=== PATIENT | female | born 1930 | race Caucasian/White ===

== ENCOUNTER 2017-01-10 13:51 | Inpatient (IN) | payer OTHER, BC ==
[~2017-01-10] VITALS: Ht 162.6 cm; Wt 65.8 kg
--- NOTE | ~2017-01-10 | EKG ---
[address] [place] [address] ELECTROCARDIOGRAM REPORT Name: NOLA BURDICK Room #: 405-P ADM IN M.R.#: [id number] Admission: 01/10/17 Attend Phys: Caleb De Jesus Discharge: Date of : [birth year] Report #: [id number] THIS REPORT FOR: //name// [facility] ED Test Date: 2017-01-10 Test Time: 18:08:25 Pat Name: NOLA BURDICK Department: Room: 405 Gender: F Roustabout Hand: Shahrzad IRIZARRY : 1930 Requested By: Stu Hernandez Order Number: [id number] MD: Ivan Rick Measurements Intervals [place] Rate: 106 P: -4 AL: 157 QRS: 36 QRSD: 75 T: 35 QT: 345 QTc: 459 Interpretive Statements Sinus tachycardia Atrial premature complexes Compared to ECG 03/15/2016 14:10:04 Sinus rhythm no longer present Electronically Signed On 01-11-2017 8:07:11 CDT by Ivan Rick [email or web address] <ELECTRONICALLY SIGNED> By: Ivan Rick MD 10/806 07 07 Ivan Rick MD /DIANE
[~2017-01-10 13:51] MED LIST: ACETAMINOPHEN-1 EAC1 PO; ASPIRIN81 M2 PO; ATIVAN0.5 MG PO; CELEXA40 MG PO; DIFLUCAN200 MG PO; DIOVAN160 MG PO; DOXEPIN 10 MG C10 M1 PO; DOXEPIN 25 MG C25 M1 PO; GRAPE SEED25 MG PO; GREEN TEA1 EACH PO; HYDROCHLOROTH12.5 M1 PO; HYDROCHLOROTH12.5 MG PO; LIPITOR10 MG PO; LIPITOR40 MG PO; OMEGA 3-6-9 CO1 EACH; OMEGA-3 + VITA1 EAC1 PO; OMEPRAZOLE 20 M20 M1 PO; POTASSIUM20 PO; SERTRALINE HCL50 MG PO; STOOL SOFTENER50 MG PO; TRAMADOL 50 MG50 MG PO; TYLENOL EX-STR500 M2 PO; [UNRECOGNIZED DRUG - OTHER]
[2017-01-10 14:16] VITALS: BP 102/48
[2017-01-10] MEDS ORDERED: CALCIUM 500 +1 EAC5 PO (16:02)
[2017-01-10] MEDS ORDERED: UNICOMPLEX M TA1 TA1 PO (16:03)
[2017-01-10] MEDS ORDERED: VITAMIN B-1100 M1 PO (16:03)
[2017-01-10] MEDS ORDERED: MELATONIN5 M1 PO (16:05)
[2017-01-10] MEDS ORDERED: CELEXA20 MG PO (16:06)
[2017-01-10] MEDS ORDERED: CARDIOSTEROL C1 EACH PO (16:07)
[2017-01-10] MEDS ORDERED: CITRACAL PLUS1 EAC1 PO (16:07)
[2017-01-10] MEDS ORDERED: VOLTAREN GEL 1100 G2 TOP (16:08)
[2017-01-10] MEDS ORDERED: MAGNESIUM250 M1 PO (16:08)
[2017-01-10 18:45] VITALS: BP 102/48
[2017-01-10 19:26] LABS: ABSOLUTE NEUTROPHILS 4.1 thou/uL (1.4-8.2); BASOPHILS 0.8 % (0.0-2.0); EOSINOPHILS 3.1 % (0.0-3.0); HEMATOCRIT 37.8 % (37.0-47.0); HEMOGLOBIN 12.9 gm/dL (12.0-15.0); LYMPHOCYTES 23.1 % (24.0-44.0); MCH 32.7 pg (26.0-34.0); MCHC 34.1 g/dL (28.0-37.0); MONOCYTES 11.4 % (1.0-8.0); PLATELET COUNT 160 thou/uL (150-400); POLYS 61.6 % (36.0-66.0); RBC 3.94 mil/uL (4.20-5.00); RDW 12.3 % (10.5-14.5); WBC 6.6 thou/uL (4.0-11.0)
[2017-01-10 19:32] VITALS: BP 137/71
[2017-01-10 19:32] LABS: MANUAL DIFF NO
[2017-01-10 19:37] LABS: CALCIUM 10.2 mg/dL (8.5-10.1); CREATININE 1.1 mg/dL (0.6-1.0)
[2017-01-10 19:41] LABS: APTT 30.6 Seconds (24.5-32.8); PROTIME 9.9 Seconds (9.3-11.4)
[2017-01-10 20:33] VITALS: BP 146/55
[2017-01-10 20:34] VITALS: BP 146/55
[2017-01-11 05:30] VITALS: BP 150/65
[2017-01-11] MEDS ORDERED: PAIN & FEVER325 MG PO (09:38)
== END 2017-01-11 09:50 | DRG 561 ==
LOC: ER 13:51 → EROBS 18:17 → 4N 19:39
PROVIDERS: Nurse Practitioner
DX: M97.02XA Periprosthetic fracture around internal prosthetic left hip joint, initial encounter (principal); Z96.659 Presence of unspecified artificial knee joint; F41.9 Anxiety disorder, unspecified; I10 Essential (primary) hypertension; F32.9 Major depressive disorder, single episode, unspecified; E78.5 Hyperlipidemia, unspecified; Z96.642 Presence of left artificial hip joint; Z88.0 Allergy status to penicillin; Z87.891 Personal history of nicotine dependence; Z79.899 Other long term (current) drug therapy; W18.39XA Other fall on same level, initial encounter; Y93.89 Activity, other specified; Y92.89 Other specified places as the place of occurrence of the external cause; Y99.8 Other external cause status
CPT/HCPCS: 10790

== ENCOUNTER 2017-10-20 10:57 | Emergency (ER) | payer OTHER, BC ==
[~2017-10-20] VITALS: Ht 162.6 cm; Wt 65.8 kg
[~2017-10-20 10:57] MED LIST changes: +CALCIUM 500 +1 EAC5 PO; +CARDIOSTEROL C1 EACH PO; +CELEXA20 MG PO; +CITRACAL PLUS1 EAC1 PO; +MAGNESIUM250 M1 PO; +MELATONIN5 M1 PO; +PAIN & FEVER325 MG PO; +UNICOMPLEX M TA1 TA1 PO; +VITAMIN B-1100 M1 PO; +VOLTAREN GEL 1100 G2 TOP
[2017-10-20] MEDS ORDERED: ACETAMINOPHEN-1 EAC1 PO (12:09)
== END 2017-10-20 13:12 | disposition home or self-care (01) ==
LOC: ER 10:57
DX: S83.91XA Sprain of unspecified site of right knee, initial encounter (principal); I10 Essential (primary) hypertension; F41.9 Anxiety disorder, unspecified; Z96.649 Presence of unspecified artificial hip joint; Z96.659 Presence of unspecified artificial knee joint; Z87.891 Personal history of nicotine dependence; Z88.0 Allergy status to penicillin; W18.30XA Fall on same level, unspecified, initial encounter; Y93.89 Activity, other specified; Y92.89 Other specified places as the place of occurrence of the external cause; Y99.8 Other external cause status

== ENCOUNTER 2018-05-05 23:23 | Emergency (ER) | payer OTHER, BC ==
[~2018-05-05] VITALS: Ht 165.1 cm; Wt 81.7 kg
[2018-05-05] MEDS ORDERED: TUMS PO (23:39)
[2018-05-05] MEDS ORDERED: COLACE100 MG PO (23:50)
[2018-05-05] MEDS ORDERED: MILK OF MA2400 MG/10 PO (23:52)
[2018-05-05] MEDS ORDERED: B-12 DOTS500 MCG PO (23:53)
[2018-05-05] MEDS ORDERED: VITAMIN D3400 UNIT PO (23:54)
[2018-05-05] MEDS ORDERED: BUSPIRONE HCL10 MG PO (23:54)
[2018-05-05] MEDS ORDERED: LEXAPRO20 MG PO (23:55)
[2018-05-05] MEDS ORDERED: SEROQUEL 25 MG25 M1 PO (23:57)
[2018-05-06] MEDS ORDERED: BIOFREEZE118 ML (00:05)
[2018-05-06] MEDS ORDERED: ATIVAN0.5 MG (00:09)
[2018-05-06 02:12] VITALS: BP 136/68
== END 2018-05-06 02:00 | disposition home or self-care (01) ==
LOC: ER 23:23
DX: M25.552 Pain in left hip (principal); I10 Essential (primary) hypertension; F41.9 Anxiety disorder, unspecified; E78.5 Hyperlipidemia, unspecified; Z96.652 Presence of left artificial knee joint; Z96.642 Presence of left artificial hip joint; Z87.891 Personal history of nicotine dependence; Z88.0 Allergy status to penicillin; W03.XXXA Other fall on same level due to collision with another person, initial encounter; Y93.89 Activity, other specified; Y92.129 Unspecified place in nursing home as the place of occurrence of the external cause; Y99.8 Other external cause status

== ENCOUNTER 2018-06-09 05:19 | Emergency (ER) | payer OTHER, BC ==
[~2018-06-09] VITALS: Ht 165.1 cm; Wt 81.7 kg
[~2018-06-09 05:19] MED LIST changes: +ATIVAN0.5 MG; +B-12 DOTS500 MCG PO; +BIOFREEZE118 ML; +BUSPIRONE HCL10 MG PO; +COLACE100 MG PO; +LEXAPRO20 MG PO; +MILK OF MA2400 MG/10 PO; +SEROQUEL 25 MG25 M1 PO; +TUMS PO; +VITAMIN D3400 UNIT PO
[2018-06-09 05:53] LABS: ABSOLUTE NEUTROPHILS 2.2 thou/uL (1.4-8.2); BASOPHILS 0.6 % (0.0-2.0); EOSINOPHILS 2.9 % (0.0-3.0); HEMATOCRIT 40.3 % (37.0-47.0); HEMOGLOBIN 13.6 gm/dL (12.0-15.0); LYMPHOCYTES 32.4 % (24.0-44.0); MCH 32.6 pg (26.0-34.0); MCHC 33.6 g/dL (28.0-37.0); MONOCYTES 11.7 % (1.0-8.0); PLATELET COUNT 153 thou/uL (150-400); POLYS 52.4 % (36.0-66.0); RBC 4.15 mil/uL (4.20-5.00); RDW 12.9 % (10.5-14.5); WBC 4.2 thou/uL (4.0-11.0)
[2018-06-09 06:01] LABS: CALCIUM 9.8 mg/dL (8.5-10.1); CREATININE 0.8 mg/dL (0.6-1.0); POTASSIUM 3.9 mmol/L (3.5-5.1)
[2018-06-09 06:47] VITALS: BP 106/53
--- NOTE | 2018-06-09 08:03 | EKG ---
[address] [address] ELECTROCARDIOGRAM REPORT Name: NOLA BURDICK TENZIN Room #: DEP [facility]#: [id number] ������������������ Admission: 06/09/18 ������������������ Attend Phys: Discharge: 06/09/18 ������������������ Date of : [birth year] Report #: [id number] ����������������������������������������������������������������� [id number] THIS REPORT FOR: //name// [facility] ED Test Date: 2018-06-09 Test Time: 05:53:31 Pat Name: NOLA BURDICK Department: Room: Gender: F Veterinary Virus Serum Inspector: [email or web address] : 1930 Requested By: Jaime Reed Order Number: [id number] MD: Mitchel Hollis Measurements Intervals [place] Rate: 71 P: 19 MS: 165 QRS: 20 QRSD: 78 T: 34 QT: 389 QTc: 423 Interpretive Statements Sinus rhythm Normal tracing Compared to ECG 11/25/2017 23:08:19 Atrial premature complex(es) no longer present Electronically Signed On 06-09-2018 8:03:18 CDT by Mitchel Hollis [email or web address] ��������������������������������������������� <ELECTRONICALLY SIGNED> ���������������������������������������� By: Mitchel Hollis MD, [facility] ��������������������������������������������� 06/09/18 [id number] 0553 Mitchel Hollis MD, FACC /EPI
== END 2018-06-09 07:43 ==
LOC: ER 05:19
PROVIDERS: Emergency Medicine
DX: S20.211A Contusion of right front wall of thorax, initial encounter (principal); M79.671 Pain in right foot; I10 Essential (primary) hypertension; F41.9 Anxiety disorder, unspecified; E78.5 Hyperlipidemia, unspecified; Z96.659 Presence of unspecified artificial knee joint; Z87.891 Personal history of nicotine dependence; Z88.0 Allergy status to penicillin; Z96.649 Presence of unspecified artificial hip joint; W01.198A Fall on same level from slipping, tripping and stumbling with subsequent striking against other object, initial encounter; Y92.002 Bathroom of unspecified non-institutional (private) residence as the place of occurrence of the external cause; Y93.89 Activity, other specified; Y99.8 Other external cause status

== ENCOUNTER 2018-06-24 12:20 | Inpatient (IN) | payer OTHER, BC ==
[~2018-06-24] VITALS: Ht 172.7 cm; Wt 68.0 kg
[2018-06-24 12:20] VITALS: BP 165/76
[2018-06-24 12:46] LABS: BASOPHILS 0.8 % (0.0-2.0); EOSINOPHILS 0.4 % (0.0-3.0); HEMATOCRIT 41.5 % (37.0-47.0); HEMOGLOBIN 13.9 gm/dL (12.0-15.0); LYMPHOCYTES 22.3 % (24.0-44.0); MCH 32.6 pg (26.0-34.0); MCHC 33.6 g/dL (28.0-37.0); MCV 97.2 fL (80.0-100.0); PLATELET COUNT 205 thou/uL (150-400); POLYS 65.5 % (36.0-66.0); RBC 4.27 mil/uL (4.20-5.00); RDW 12.6 % (10.5-14.5); WBC 7.7 thou/uL (4.0-11.0)
[2018-06-24 12:48] LABS: URINE BILIRUBIN NEGATIVE (Negative); URINE BLOOD NEGATIVE (Negative); URINE CLARITY CLEAR; URINE COLOR YELLOW; URINE GLUCOSE-RANDOM* NEGATIVE (Negative); URINE KETONES NEGATIVE (Negative); URINE LEUKOCYTES NEGATIVE (Negative); URINE NITRITE NEGATIVE (Negative); URINE PROTEIN (DIPSTICK) 1+ (Negative); URINE SPECIFIC GRAVITY >= 1.030 (1.005-1.035); URINE UROBILINOGEN 0.2 E.U./dl (0.2-1.0)
[2018-06-24 12:55] LABS: CALCIUM 10.2 mg/dL (8.5-10.1); POTASSIUM 4.3 mmol/L (3.5-5.1)
[2018-06-24 12:56] LABS: AMP/METHAMP Negative (Negative); BARBITURATES Negative (Negative); BENZODIAZEPINES Negative (Negative); COCAINE Negative (Negative); METHADONE Negative (Negative); OPIATES Negative (Negative); PCP Negative (Negative)
[2018-06-24 12:58] LABS: BACTERIA 1-9 Few /HPF (None Seen); CASTS None Seen /LPF (None Seen); CRYSTALS None Seen /LPF (None Seen); SQUAMOUS None Seen /LPF (0-3); URINE RBC None Seen /HPF (0-2); URINE WBC 0-5 Rare /HPF (0-5)
[2018-06-24 13:00] LABS: ALBUMIN 4.3 g/dL (3.4-5.0); TOTAL BILIRUBIN 0.7 mg/dL (<0.1-1.0); TOTAL PROTEIN 7.6 g/dL (6.4-8.2)
[2018-06-24 14:01] VITALS: BP 150/70
[2018-06-24] MEDS ORDERED: LATUDA20 MG PO (14:29)
[2018-06-24 15:32] VITALS: BP 154/59
--- NOTE | 2018-06-24 17:47 | NUR ---
PATIENT ADMITTED THROUGH THE ER FROM [facility] FOR INCREASED ANXIETY AND CONFUSION AT 1600. ADMISSION HISTORY COMPLETED; LUNGS CLEAR, DIMINSHED; HYPERACTIVE BOWEL SOUNDS. PATIENT RESTLESS, WILL NOT FOLLOW COMMANDS. CHERIE PACING AROUND THE UNIT ABOUT 1700. NOW SITTING AT DR VASQUEZ, QUIET. REFUSED DINNER. REFUSED NEW ORDER FOR ZYPREXA 2.5 MG. WILL ATTEMPT TO ADMINISTER CRUSHED IN APPLESAUCE. ADMISSION HISTORY COMPLETED; LUNGS CLEAR, DIMINISHED.
--- NOTE | 2018-06-24 18:58 | NUR ---
PATIENT REFUSED ZYPREXA 2.5 MG AT 1630, NEW ORDER FROM ROB WILSON. ALSO REFUSED TO GET IN BED FOR WEIGHT. NURSE CONTACTED [facility] AT 1730 FOR CURRENT MEDICATION LIST. NEW ORDERS FOR MEDICATIONS, ENTERED BY THIS NURSE. SOME OF THE MEDS RECEIVED AT [facility] WAS NOT APPROVED BY ROB WILSON. NEED TO BE CLARIFIED WITH HOSPITALISTS. HOSPITALISTS NOTIFIED BY THIS NURSE.
[2018-06-24 20:00] VITALS: BP 180/85
--- NOTE | 2018-06-25 03:31 | NUR ---
UPON INITIAL OBSERVATION THIS SHIFT IN DAYROOM SITTING QUIETLY EATING SNACK-DURING ;1 INTERACTION REPORTS FEELING "REALLY ANXIOUS-DAFNE NEVER BEEN HERE BEFORE-I WANT TO GO HOME I CAN TAKE A TAXI" DID REPEAT THIS SEVERAL TIMES AND WAS UNABLE TO BE REFOCUSED/REDIRECTED-PM VS OBTAINED AND IS NOTED TO HAVE ELEVATED BP AT 180/85-AFTER SEVERAL CONVERSATIONS WITH NURSING DID APPEAR TO ACCEPT SHE WOULD BE STAYING FOR EVALUATION-INITALLY REFUSED TRAZADONE 50MG AND ZYPREXA SCHEDULED FOR HS BUT WHEN ADVICED THAT THIS WOULD HELP ANXIETY AND ELEVATED BP DID COMPLY-BP RECHECKED APPROX 45 MINUTES AFTER MEDS GIVEN AND IS 176/82. APPEARED TO REST QUIETLY FROM APPROX 2200 TO 0300-RESTLESS AFTER 0300 UP AND DOWN IN ROOM- A
[2018-06-25 07:45] VITALS: BP 175/85
--- NOTE | 2018-06-25 10:35 | NUR ---
ASSUMED PATIENT CARE AT 0700. PATIENT UP IN D.R. AT THAT TIME. PATIENT WOULD NOT EAT BREAKFAST, ONLY DRANK HER MILK. BEGAN TALKING ABOUT GOING HOME WITH HER FATHER, STATING THAT SHE IS LEAVING TODAY. DIFFICULT TO RE-DIRECT. FLAT AFFECT, WILL NOT ALLOW SKIN ASSESSMENT TO DATE BY THIS NURSE. WITH ENCOURAGEMENT, TOOK A.M. MEDICATIONS, CRUSHED AND IN APPLESAUCE. SEEN BY DR. NICHOLS THIS A.M.; NURSE GAVE REPORT TO DR. NICHOLS. NEED NAME AND PAPERWORK FROM ASSIGNED DPOA. WILL CONTACT [facility] FOR MORE INFORMATION. CONTINUE TO MONITOR.
--- NOTE | 2018-06-25 11:45 | EKG ---
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 Performance Qualified: derrek : 1930 Requested By: Grace Bassett Order Number: [id number] MD: Mitchel oHllis Measurements Intervals [place] Rate: 72 P: 45 AL: 142 QRS: 29 QRSD: 81 T: 31 QT: 407 QTc: 446 Interpretive Statements Sinus rhythm Atrial premature complex Abnormal R-wave progression, early transition Compared to ECG 06/09/2018 05:53:31 Atrial premature complex(es) now present Electronically Signed On 06-25-2018 11:45:25 CDT by Mitchel Hollis [email or web address] ��������������������������������������������� <ELECTRONICALLY SIGNED> ���������������������������������������� By: Mitchel Hollis MD, FACC ��������������������������������������������� 06/25/18 1145 1257 1257 Mitchel Hollis MD, [facility] /EPI
--- NOTE | 2018-06-25 12:27 | NUR ---
SW attempted to complete the psychsocial assessment with Pt, however it could not be completed. Pt is confused and when asked a question she would talk about being in school and having a masters degree in maori literature Pt to confused to give historic or current information and was only oriented to self. MARI attempted to call Conchis Brower, who has been identified as the possible DPOA. Mari left a message for Ese Leonarda at [phone] for a return call back.
--- NOTE | 2018-06-25 13:02 | NUR ---
PATIENT ADMINISTERED 2.5 MG ZYPREXA,IM, AT THIS TIME FOR INCREASED AGITATION, RIGHT HIP. ASSISTED BY TWO OTHER STAFF MEMBERS.
--- NOTE | 2018-06-25 15:32 | NUR ---
PATIENT CONTINUES TO REFUSE MEDICATIONS AND DIAGNOSTIC TESTING. CONTINUALLY C/O PAIN UNDERNEATH BILATERAL BREASTS. KEEPS REPEATING THAT HER DOCTOR DOES NOT WORK HERE, AND THAT ONLY WANTS TO SEE HER OWN DOCTOR.
--- NOTE | 2018-06-25 16:17 | NUR ---
NEW ORDER 5 MG HALDOL, IM, PER SHOT MAN FLORINA WILSON AT 1605. NURSE ADMINISTERED ABOVE ORDER AT 1612 P.M. FOR INCREASED AGITATION, YELLING, HITTING STAFF MEMBERS. ALSO ORDER FOR 4 BEDRAILS UP UNTIL PATIENT CALMS DOWN. OTHER STAFF R.N. SITTING WITH PATIENT AT BEDSIDE AT THIS TIME.
--- NOTE | 2018-06-25 18:21 | NUR ---
KUB AND EKG COMPLETED, ONE FOLLOWING THE OTHER, AT ABOUT 1700. KUB NORMAL GASSES, NO SIGNS OF CONSTIPATION. EKG, NORMAL SINUS RHYTHM. ANALISA, [facility], PRESENTED ON THE UNIT TO NOTARIZE 96 HOUR HOLD, R/T NO LEGAL GUARDIAN PRESENT TO SIGN PATIENT IN. PATIENT REFUSES DRINKS OF WATER; TOOK ONE DRINK, THEN SPIT UP MOUCUSY LOOKING SALIVA.
[2018-06-25 19:46] VITALS: BP 152/59
--- NOTE | 2018-06-26 01:26 | EKG ---
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: JORGE : 1930 Requested By: Carla Saldana Order Number: [id number] MD: Americo Lara Measurements Intervals [place] Rate: 88 P: 30 SD: 128 QRS: -4 QRSD: 76 T: 29 QT: 350 QTc: 424 Interpretive Statements Sinus rhythm Baseline wander Nonspecific ST-T wave changes Compared to ECG 06/24/2018 12:57:13 Atrial premature complex(es) no longer present Electronically Signed On 06-26-2018 1:26:40 CDT by Americo Lara [email or web address] ��������������������������������������������� <ELECTRONICALLY SIGNED> ���������������������������������������� By: Americo Lara MD ��������������������������������������������� 06/26/18 0126 1755 1755 Americo Lara MD /EPI
--- NOTE | 2018-06-26 04:12 | NUR ---
UPON INITITAL ASSESSMENT THIS PM AT APPROX 1929 WAS LYING QUIETLY IN ROOM- NOTED TO BE MILDLY DROWSY BUT CALM-SPEECH CLEAR-CONVERSATION FOCUSES ON SOMATIC COMPLAINTS AND SUBSEQUENT DX PROCEDURES FROM EARLIER IN DAY. NO COMPLAINTS OF PAIN OR DISCOMFORT AT THIS TIME-STATING"I WANT TO GET A TAXI AND GO HOME" BUT WAS EASILY REDIRECTED OFF OF THIS TOPIC-APPEARED TO REST FOR APPROX 30 MINUTES IN ROOM BEFORE NOTED TO BE UP WANDERING IN HALLWAYS-WALKED INTO PEERS ROOM AND TURNED THE LIGHT OFF AND PROCEDED TO URINATE IN HER TOILET-WALKED BACK TO ROOM,GIVEN HS MEDS AND HS SNACK-ATE 2 CONTAINERS OF YOGURT AND APPROX. 150CC OF H20 WITH HER HS MEDS-REFUSED TO TAKE OF SWEATSHIRT OR CHANGE GOWN UNDERNEATH OTHERWISE COOPERATIVE WITH HS CARES-TO BED AT APPROX 0 AND HAS APPEARED TO REST QUIETLY SINCE THAT TIME
[2018-06-26 07:45] VITALS: BP 136/64
--- NOTE | 2018-06-26 08:30 | NUR ---
PT EATING BREAKFAST WITH INTERMITTANT COUGHING. LUNGS CLEAR. PT STATED SHE DIDN'T GET ANY SLEEP LAST NIGHT. LENS INSPECTOR STATED THAT SHE HAD 9 HOURS OF SLEEP.
[2018-06-26 09:00] VITALS: BP 136/64
[2018-06-26 10:08] LABS: HEMATOCRIT 40.8 % (37.0-47.0); HEMOGLOBIN 13.9 gm/dL (12.0-15.0); MCH 33.1 pg (26.0-34.0); MCHC 34.1 % (28.0-37.0); MCV 96.9 fL (80.0-100.0); RBC 4.21 mil/uL (4.20-5.00); RDW 12.7 % (10.5-14.5); WBC 7.5 thou/uL (4.0-11.0)
--- NOTE | 2018-06-26 12:00 | NUR ---
SPEECH THEAPY TO EVAL SWALLOWING WITH LUNCH.
--- NOTE | 2018-06-26 14:05 | NUR ---
EATING PEANUT BUTTER AND CRACKERS WITHOUT COUGHING. DIDN'T PARTICIPATE IN AM OR PM GROUP.
--- NOTE | 2018-06-26 17:06 | NUR ---
PT NOT COUGHING WITH THICKEN LIQUIDS FOR DINNER. TOLERATING MED WHOLE WITH THICKEN LIQUID.
[2018-06-26 19:36] VITALS: BP 120/78
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
--- NOTE | 2018-06-27 01:03 | NUR ---
Pt awakened at midnight wanting to use the restroom. Pt urinated 200cc and shortly after stated she needed to urinate again, and she did 500cc. She had to be redirected when walking in the halls not to go into other patients rooms to use their bathrooms. Pt also complained of back and generalized pain and prn given. When pt was taking pill out of medicine cup she was complaint and then proceeded to act as though she were taking 2 more pills out of the cup prior to swallowing. Pt also stated that she needed to get up to go to mosque. She walked around the day room and halls x 2, watched a few minutes of mosque on the tv and returned to bed.
--- NOTE | 2018-06-27 03:20 | NUR ---
Pt has remained asleep since 29.
[2018-06-27 14:27] VITALS: BP 148/66
--- NOTE | 2018-06-27 15:52 | NUR ---
PATIENT WAS IN BED WHEN CARE ASSUMED, UPON AWAKENING, PATIENT ASSISTED TO BATHROOM, SHE IS FORGETFUL, CONFUSED, PARANOID, DELUSIONAL, UNABLE TO RESPOND APPROPRIATELY TO ASSESSMENT QUESTION. " I AM GOING TO [place] I CAN'T WALK". PATIENT AMBULATES WITH ASSIST OF ROLLER WALKER. SHE IS EATING MEALS AND DRINKING FLUID WELL. PATIENT IS ON THICKEN LIQUID, NO COUGHING NOTED WITH BREAKFAST AND LUNCH. NO SUICIDAL/HOMOCIDAL STATEMENT MADE AT THIS TIME. PATIENT RESPONDS TO INTERNAL STIMULI, TALKS TO SELF AND UNSEEN OTHERS. WILL CONTINUE TO REDIRECT AND MONITOR FOR SAFETY.
[2018-06-27 19:33] VITALS: BP 154/85
[2018-06-27 19:54] VITALS: BP 160/84
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
--- NOTE | 2018-06-28 02:24 | NUR ---
AWAKE AT THIS TIME, STILL VERY ARGUMENTATIVE, HAD A DOSE OF ZYPREXIA, PT BARELY STAYED IN BED AFTER SHOT WAS GIVEN, STILL VERY CONFUSED, MONITORED.
[2018-06-28 07:30] VITALS: BP 167/98
--- NOTE | 2018-06-28 08:10 | NUR ---
PT UP IN DINNING ROOM EATING BREAKFAST. TOLERATING THICKEN LIQUIDS WITHOUT COUGHING. PT STATED SHE DIDN'T KNOW WHATS WRONG WITH ME, OTHER PEOPLE ARE OK. PT STATED IT LOOKS LIKE IT IS GOING TO RAIN TODAY.
--- NOTE | 2018-06-28 09:57 | NUR ---
PT TOOK ALL MEDS IN CUP AT ONE TIME. COUGHED ON ONE OF THE MEDS. DRANK WATER TO GET PILL DOWN.
[2018-06-28 14:44] VITALS: BP 167/98
--- NOTE | 2018-06-28 17:35 | NUR ---
PT SLEEPING AT THIS TIME. DIDN'T WANT TO EAT DINNER.
[2018-06-28 21:28] VITALS: BP 157/71
--- NOTE | 2018-06-28 23:13 | NUR ---
ASSUMED CARE @ 19:30. IN BED, SETS ALARM OF EVERY FEW MINUTES, PUTTING LEGS OVER THE EDGE OF THE BED. ASSISTED TO TOILET. VERY UNSTEADY WITHOUT WALKER. ASSISTED INTO CLEAN BRIEFS, INCONTINENT OF BOWEL AND BLADDER. ALSO URINATED IN TOILET. ASSISTED BACK TO BED. QUITE ANXIOUS, SAYIING, " YOU DONT KNOW WHAT I NEED". AND "OTHER PEOPLE WILL LAUGH AT ME, THEY CAN DO IT, BUT I CANT". WILL CONTINUE TO MONITOR. BED ALARM SET.
[2018-06-29 03:41] VITALS: BP 157/71
--- NOTE | 2018-06-29 05:58 | NUR ---
SLEPT 8.2 HOURS OVERNIGHT.
--- NOTE | 2018-06-29 09:17 | NUR ---
0730: Report rec. from noc shift, care assumed. Pt resistant to being out of room, states "I just want to be in bed." Pt re-directed 5 times back to for a.m., observed pt in another pts BR,anxious, confused to place, time and situation, calmer mood noted when sitting with pt and visiting, does state "legs hurt." On scheduled Tylenol w/PRN Tramadol. Appetite fair, feeds self with supervision, takes w/o difficulty, suspicious of medications, names of each med explained to pt. To 0900 therapy group, participates and cooperative with staff, less anxiety noted with group involvement.
[2018-06-29 10:54] VITALS: BP 151/70
--- NOTE | 2018-06-29 16:38 | NUR ---
MARI spoke with Amee at [facility] concerning pt been referred to a memory care unit. MARI explained that pt will need a memory care unit or will need to find another placement. Amee stated that pt will transfer to a memory care unit. MARI explained that Dr. Godfrey bangull like to assessed the pt over the weekend, and discharge on Tuesday, July 03, 2018.
[2018-06-29 20:46] VITALS: BP 135/60
[2018-06-29 23:15] VITALS: BP 135/60
--- NOTE | 2018-06-30 03:38 | NUR ---
PT CONFUSED AND RESTLESS EARLY IN SHIFT. EVENING SNACK, HS MEDS TAKEN W/O PROBLEM. UP SEVERAL TIMES DURING THE NIGHT TO GO TO BATHROOM. EVENTUALLY SETTLED ABOUT 0100. CONTINUES TO SLEEP AT THIS TIME.
[2018-06-30 07:35] VITALS: BP 143/63
[2018-06-30 08:00] VITALS: BP 143/63
[2018-06-30 08:53] VITALS: BP 135/60
--- NOTE | 2018-06-30 11:09 | NUR ---
Recreational Therapy Weekly Progress Note Date of Admission: 06/24/18 Date of Activity Therapy Assessment: 06/27/2018 Activity Goal: Patient will participate in 1 recreational therapy group per day until discharge. Initial Goal: Increase/maintain reality orientation to aid in frustration and impulse control. Weekly progress towards goal: Did not achieve goals Group participation level: Minimal Behaviors observed: Patient ocassionally participates in morning recreational therapy group though she is showing a trend of confusion in the afternoon and not attending PM group. During these times pt becomes aggitated and begins name calling, perseverating, and wanders. Plan: No change towards goal
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
--- NOTE | 2018-06-30 15:02 | NUR ---
ASSUMED CARE AT 0715 THIS MORNING. PT. IN BED, DID NOT GET UP FOR BREAKFAST. BREAKFAST WAS SAVED AND GIVEN TO HER ABOUT 0900. SHE CONTINUES TO BE EXTREMELY CONFUSED. SHE IS ORIENTED TIMES ONE ONLY. SHE DID ATTEND AM GROUP BUT UNABLE TO PARTICIPATE MUCH. SHE STAYED UP BUT WENT TO HER ROOM. SHE WAS UPSET THAT NO ONE WAS UP WITH HER IN HER ROOM BUT DID NOT WANT TO COME OUT OF HER ROOM TO JOIN OTHERS. AT 1400 SHE WENT INTO HER ROOM TO UTILIZE THE BATHROOM. HOWEVER, SHE DID NOT PULL UP HER PANTS, STEPPED ON HER PANT LEGS AND FELL TO THE GROUND. B/P 143/93 PULSE 86 AFTER FALL. PT. PLACED IN BED AND ALLOWED TO REST. HER TYLENOL WAS GIVEN ORDERED.
[2018-06-30 19:33] VITALS: BP 123/49
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
[2018-07-01 13:49] VITALS: BP 123/49
--- NOTE | 2018-07-01 14:00 | NUR ---
ASSUMED CARE AT 0715 TODAY. PT. UP FOR MEALS, GROUPS. CONTINUES TO BE VERY CONFUSED, GOING INTO OTHER ROOMS, CONTINUALLY ASKING HOW TO GET DOWNSTAIRS TO THE CAR. SHE HAS BEEN ENCOURAGED BY STAFF TO UTILIZE HER WALKER WHILE AMBULATING. UNABLE TO SIT STILL TO EAT, SHE ONLY EATS ABOUT 1/4 TO 1/2 MEALS. THIS RN ATTEMPTED TO FEED HER, BUT SHE BECAME RESTLESS AND CONTINOUSALLY WALKED AWAY. SHE HAS BEEN TRYING THE DOORS IN ATTEMPT TO FIND THE WAY OUT. SHE EASILY IRRITABLE WHEN STAFF TRIED TO REDIRECT HER. NO S/S HI/SI, AVH NOTED BY STAFF.
[2018-07-01 20:36] VITALS: BP 122/74
[2018-07-02 00:54] VITALS: BP 126/60
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
[2018-07-02 03:05] VITALS: BP 126/60
--- NOTE | 2018-07-02 12:54 | NUR ---
ASSUMED CARE OF PATIENT @ 0700. PATIENT RESTING IN BED AT SHIFT CHANGE INCOTINENT OF URINE LARGE AMOUT (YELLOW/CLEAR). ASSISTED UP TO BATHROOM W/WALKER & STAFF X 1. PATIIENT ANXIOUS STATING "I DON'T HAVE MUCH TIME LEFT I AM 88 YEARS OLD." PATIENT NOT ORIENTED TO PLACE, TIME, BUT ORIENTED TO SELF. PROVIDED FREQUENT REASSURANCE TO PATIENT. COMPLIANT W/MEDS TAKEN W/HONEY THICK LIQUIDS. APPETITE POOR DID NOT WANT TO AT MEALS REQUIRED MUCH PROMPTING/ENCOURAGEMENT TO EAT. NAPPED DURING DAY. NO ACUTE DISTRESS NOTED. UP AMBULATING WITH WALKER & STAFF ASSIST FOR SAFETY. CONTINUES FALL RISK & MONITOR THROUGHOUT REMAINDER OF SHIFT.
--- NOTE | 2018-07-02 17:37 | NUR ---
PATIENT REMAINS ANXIOUS AND REPEATS "DON'T I HAVE ANY FRIENDS, WHERE IS MY MOM?, IS DANNY COMING?" REASSURANCE PROVIDED TO PATIENT. ATE DINNER IN DAYROOM QUIET AND SITS ALONE - MINIMAL INTERACTION W/PEERS. AMBULATES WITH WALKER AND ASSIST FOR SAFETY. CONTINUES ON FALL RISK MONITORING. TOILETED -VOIDED YELLOW CLEAR URINE & SMALL FORMED BM. DRINKING WATER REGULARLY. NO ACUTE DISTRESS NOTED. CONTINUE TO MONITOR THROUGHOUT SHIFT.
[2018-07-03 00:13] VITALS: BP 131/48
--- NOTE | 2018-07-03 02:47 | NUR ---
IN BED SLEEPING UPON INITIAL ASSESSMENT THIS PM(1929) RESPONDS TO VERBAL PROMPTS BUT STATES SHE IS TIRED AND DOESN'T WANT TO COME TO DAYROOM FOR HS SNACK. AWAKENED AT 2100 FOR HS MEDS AND CARES-INCONTINENT OF URINE ON WAY TO BR-ASSISTED INTO [facility] AND [facility],BRIEF CHANGE PROVIDED. REQUIRES PROMPTING/VERBAL QUES TO COMPLETE ADLS TENDS TO BE DEPENDENT ON STAFF TO COMPLETE VS. DOING FOR SELF- IE ASKING STAFF TO PUT TOOTHPAST ON TOOTH BRUSH TURN WATER ON,PULL PANTS UP ETC. STATES SEVERAL TIMES DURING INTERACTION WITH STAFF "NO ONE LIKES ME HERE-I CAN JUST TELL,I THINK I SHOULD LEAVE" WHEN SPEAKING ABOUT GOING TO [facility] STATES SHE STOPPED ATTENDING BECAUSE "NO ONE LIKES ME THERE" ATTEMPTED TO RETURN TO BED FOR NOCT AT APPROX 2200 BUT OBSERVED TO BE RESTLESS,UP AND DOWN OUT OF BED SEVERAL TIMES AND SETTING OFF BED ALARM-REPORTING BACK/LEG PAIN NOT RELIEVED BY SCHEDULED TYLENOL GIVEN AT 2100-OFFERED ULTRAM BUT IS SUSPICIOUS STATING "I DON'T THINK MY DR ORDERED THAT FOR ME-I DON'T THINK I SHOULD TAKE IT-ASSURED THAT SHE HAD TAKEN IT SEVERAL TIMES RECEMTLY WITH GOOD RESULTS AND SHE DID EVENTUALLY TAKE ULTRAM 50MGPOPRN AT 2245-UP IN DAYROOM WITH STAFF ASSISTANCE FOR SNACK AND RETURNED TO BED AT APPROX. 1230-WILL MONITOR
[2018-07-03 07:50] VITALS: BP 124/57
[2018-07-03] MEDS ORDERED: COZAAR 50 MG TA50 M1 PO (10:56)
[2018-07-03] MEDS ORDERED: ACETAMINOPHEN325 M1 PO (10:57)
[2018-07-03] MEDS ORDERED: ZYPREXA 5 MG TAB5 M1 PO ×2 (10:58→10:59)
[2018-07-03] MEDS ORDERED: SEROQUEL 25 MG25 M1 PO (10:59)
[2018-07-03 11:00] VITALS: BP 124/57
[2018-07-03] MEDS ORDERED: COLACE 100 MG100 MG PO (11:00)
--- NOTE | 2018-07-03 11:13 | NUR ---
ASSUMED CARE AT 0715 THIS MORNING. PT. ON UNIT FOR BREAKFAST. SHE CONTINUALLY ASKED FOR WATER, BUT CHOKES ON THIN LIQUIDS. PT. CONTINUES TO BE EXTREMELY CONFUSED. AFTER MORNING GROUP, PT. WENT BACK TO BED. PT. GOTTEN UP BY STAFF SHE IS SCHEDULED TO LEAVE AT 1100 TODAY. PT. DRESSED.
--- NOTE | 2018-07-03 16:14 | NUR ---
MARI recieved a phone call from Cherelle that pt will be able to discharge tomorrow, July 04, 2018.
[2018-07-03 19:55] VITALS: BP 142/66
--- NOTE | 2018-07-03 22:18 | NUR ---
Pt stating she is fearful and concerned about falling in the bathroom. Pt ambulating with walker steady in day room and halls. Pt does need assistance with standing and sitting. Pt continues to state she needs to urinate even after she has done so. Pt continued to complain of back pain after tylenol and prn provided. Pt states she wants to leave tomorrow to go to her family. She also has been stating that she does not have any money or checks.
--- NOTE | 2018-07-04 00:11 | NUR ---
Pt up x 3 to urinate and only urinated x1. Pt stating she needs to have a movement and points to her bottom. PRN MOM provided. Pt reported being anxious, wondering where vannesa and nan from [place] are. Pt sat in day room. Ambulated short distance in vital. She yelps when sitting on toilet or bed states she is fearful that she will fall. Prn seroquel given for anxiety.
--- NOTE | 2018-07-04 02:26 | NUR ---
Pt was able to fall asleep approximately 1 hr after prn.
--- NOTE | 2018-07-04 03:47 | NUR ---
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 Pt slept breifly, pt has been talking to herself periodically.
--- NOTE | 2018-07-04 04:31 | NUR ---
Pt stated she was going to because she is old. She also stated she wants to go home to her friends.
--- NOTE | 2018-07-04 07:15 | NUR ---
PT UP WALKING IN [place] THIS AM. CONCERNED ABOUT GOING TO BATHROOM. HAD TO UNLOCK ROOM TO LET PT IN TO USE BATHROOM. PT VOIDED AND STATED WORRIED ABOUT A BM. PT USING WALKER WHEN SITTING ON TOILET AND STATED TOILET WAS LOW. BRIEF ON FOR STRESS INCON.
[2018-07-04 07:40] VITALS: BP 113/86
--- NOTE | 2018-07-04 08:30 | NUR ---
ATE BREAKFAST, TOOK MEDS WITHOUT DIFFICULTY WITH THICKENED LIQUIDS. UP AND WALKING AROUND IN [place].
--- NOTE | 2018-07-04 09:05 | NUR ---
Assess for length of stay. Admitted onto Senior Behavioral [facility] unit. Hx dysphagia. Seen intially by ST and pt will remain on [facility] altered diet with honey thickened liquids. Has Magic Cups also ordered. Wt stable ~150-150 lb. Intake declined for couple days but has been improving >50%-100%. Low nutrition risk.
[2018-07-04] MEDS ORDERED: ZYPREXA 5 MG TAB5 M1 PO (10:09)
--- NOTE | 2018-07-04 10:21 | NUR ---
Patient Name: NOLA BURDICK Admission Date: 06/24/18 DISCHARGE PLAN: Pt will be discharge to [facility] Care unit. Care Assessment: Pt was assessed Dr. Stokes, and diagnosed with Major Neurocognitive Disorder. Level II Assessment: None Transportation: Pt will be transported by [facility] staff. Special Instructions/Notes: Pt will have to be in a memory care setting due to her cognition impairment. DISCHARGE TO FACILITY: Memory Care unit Facility: [facility] Fax: Address: [address] [place] [phone] Contact Name: Cherelle PCP: D Facility Doctor Psychiatrist:
[2018-07-04 10:40] VITALS: BP 113/86
--- NOTE | 2018-07-04 11:00 | NUR ---
PT LEFT VIA W/C VAN. PT YELLOW WATCH GIVEN BACK TO PT AND PLACED IN PAPER WORK BAG.
--- NOTE | 2018-07-04 11:20 | NUR ---
TRIED TO CALL TWICE FOR REPORT AT [facility].
--- NOTE | 2018-07-04 15:28 | NUR ---
INDIGO CALLED BACK FROM [facility].
--- NOTE | 2018-07-05 23:03 | D ---
[facility] [place] [address] DISCHARGE SUMMARY Name: NOLA BURDICK Room #: 528B-B DIS IN M.R.#: [id number] Admission: 06/24/18 ������������������ Attend Phys: Chris Donahue DO Discharge: 07/04/18 ������������������ Date of : [birth year] Report #: [id number] THIS REPORT FOR: //name// CC: Chris LAGOSLEY Physician staff DATE OF SERVICE: 07/04/2018 INPATIENT PSYCHIATRIC DISCHARGE SUMMARY ATTENDING PHYSICIAN: Chris Donahue DO. LOGISTICS LEAD AT THE TIME OF DISCHARGE: Destini Ly ISCHARGE DIAGNOSES: Major neurocognitive disorder, likely due to Alzheimer disease with behavioral disturbance, improved. Medical comorbidities included hypertension, chronic pain disorder, spinal stenosis, aspiration and dysphagia. DISCHARGE MEDICATIONS: Losartan 50 mg oral daily for hypertension; acetaminophen scheduled at 650 mg p.o. at 09:00, 15:00 and 21:00 for pain; olanzapine 10 mg p.o. at 14:00 and 21:00 for mood stabilization; also olanzapine 5 mg p.o. q.6h. p.r.n. for agitation and 25 mg p.o. q. 6 hours for anxiety p.r.n.; docusate 100 mg p.o. b.i.d. for bowel motility; multivitamin oral daily; she is on Citrucel plus magnesium tablet 1 tablet daily and a multivitamin; magnesium 250 mg p.o. daily supplementation; codeine phosphate with APAP, basically Tylenol No. 3, one tab p.o. q.4h. p.r.n. for severe pain, 5-10 and cyanocobalamin 400 mcg 1 tab oral daily for supplementation. Decision was made to stop atorvastatin this admission as well as doxepin was stopped due to its baseless effect and citalopram was stopped. The patient is on a nectar-thick liquid diet, otherwise the solids are regular in texture. The patient does have aspiration to her dysphagia. REASON FOR ADMISSION: As follows: An 87-year-old sent from [facility]. For some reason, she had been moved to [place]; previously, she had been in memory care. She was reportedly having visual hallucinations. Facility reported confusion and the patient wanting to sleep. HOSPITAL COURSE: The patient was admitted to the Geriatric Psychiatry Unit. The patient was clearly confused and frankly demented. Her DPOA is a friend named Nola, who lives in assisted living at the facility. She did visit. We discussed the situation that we would need to focus on safety, dignity and comfort. I discussed that while she is on the Geriatric Psych Unit, we will have to keep her on a dysphagia 1 diet as I cannot afford to have a choking event. However, when she is moved to a nursing facility, if the DPOA prefers, [address] [address] DISCHARGE SUMMARY Name: NOLA BURDICK Room #: 528B-B DIS IN M.R.#: [id number] Admission: 06/24/18 ������������������ Attend Phys: Chris Donahue, DO Discharge: 07/04/18 ������������������ Date of : [birth year] Report #: [id number] diet could be liberalized noting that she could choke or certainly have aspiration pneumonia and from either of those. However, I am in agreement that her present quality of life is poor. Regarding efforts we have made, I titrated her on olanzapine at 10 mg twice a day; we had fair effect with that. The patient did generally participate, was redirectable. At the time of discharge, she is not suicidal or homicidal. LABORATORY DATA: Labs and vital signs at the time of discharge, temperature 36.7, pulse 109, respirations 18 and BP 113/86. She ambulates with a walker. Normal station. MENTAL STATUS EXAMINATION: This is a well-developed, well-nourished, appearance corresponding to her stated age female. Attention limited, concentration limited. Speech is normal rate. Thought process linear, with limited thought content, confused about the nature of her situation, but I would say pleasantly confused. No psychomotor agitation. No psychomotor retardation. Denied auditory, visual or tactile hallucinations. Denied suicidal intent or plan. Denied hopelessness, helplessness. Denied homicidal intent or plan. Memory grossly impaired, not formally tested. Insight impaired. Judgment impaired. Fund of knowledge below average. PROGNOSIS: Prognosis for this patient is guarded to poor. I do not believe we had hospice consultation this admission. LABORATORY DATA: Noted laboratories, last CBC was on 06/26/2018, which was within normal limits. Troponin on 06/26/2018 was less than 0.06. Vitamin B12 level was 1661. UDS negative. Alcohol less than 10. Urinalysis was basically asymptomatic bacteriuria. Chemistries from 06/24/2018, sodium 139, potassium 4.3, chloride 101, bicarb 30, BUN grossly normal, creatinine 1.0, glucose 150 and calcium 10.2. Magnesium 2.1. Total bilirubin 0.7, AST 30, ALT 42, alkaline phosphatase 95,protein 7.6. Albumin 4.3 and there were a couple of magnesium ones from 2016. ��������������������������������������������� <ELECTRONICALLY SIGNED> ���������������������������������������� By: Chris Donahue, ��������������������������������������������� 07/05/18 2303 0748 1539 Chris Donahue, /nt
== END 2018-07-04 11:00 | DRG 57 ==
LOC: ER 12:20 → EROBS 13:43 → SBH 13:43
PROVIDERS: Nurse Practitioner Family; Nurse Practitioner Psychiatric/Mental Health; ADMIT Psychiatry & Neurology Psychiatry
DX: G30.9 Alzheimer's disease, unspecified (principal); R44.3 Hallucinations, unspecified; F02.81 Dementia in other diseases classified elsewhere, unspecified severity, with behavioral disturbance; R45.1 Restlessness and agitation; E78.5 Hyperlipidemia, unspecified; I10 Essential (primary) hypertension; Z96.649 Presence of unspecified artificial hip joint; Z96.659 Presence of unspecified artificial knee joint; F41.9 Anxiety disorder, unspecified; F01.50 Vascular dementia, unspecified severity, without behavioral disturbance, psychotic disturbance, mood disturbance, and anxiety; G89.29 Other chronic pain; M48.00 Spinal stenosis, site unspecified; K21.9 Gastro-esophageal reflux disease without esophagitis; E78.00 Pure hypercholesterolemia, unspecified; G47.00 Insomnia, unspecified; Z66 Do not resuscitate; Z88.0 Allergy status to penicillin; Z87.891 Personal history of nicotine dependence; Z79.899 Other long term (current) drug therapy
CPT/HCPCS: 10880

== ENCOUNTER 2018-07-25 15:09 | Inpatient (IN) | payer OTHER, BC ==
[~2018-07-25] VITALS: Ht 167.6 cm; Wt 61.2 kg
[~2018-07-25 15:09] MED LIST changes: +ACETAMINOPHEN325 M1 PO; +COLACE 100 MG100 MG PO; +COZAAR 50 MG TA50 M1 PO; +LATUDA20 MG PO; +ZYPREXA 5 MG TAB5 M1 PO
[2018-07-25 15:26] VITALS: BP 166/108
[2018-07-25 15:30] LABS: URINE BILIRUBIN NEGATIVE (Negative); URINE BLOOD NEGATIVE (Negative); URINE CLARITY CLEAR; URINE COLOR YELLOW; URINE GLUCOSE-RANDOM* NEGATIVE (Negative); URINE KETONES NEGATIVE (Negative); URINE NITRITE-REFLEX NEGATIVE (Negative); URINE PROTEIN (DIPSTICK) NEGATIVE (Negative); URINE SPECIFIC GRAVITY 1.015 (1.005-1.035); URINE UROBILINOGEN 0.2 E.U./dl (0.2-1.0)
[2018-07-25 15:33] LABS: URINE LEUKOCYTES-REFLEX 1+ (Negative)
[2018-07-25 15:38] LABS: AMP/METHAMP Negative (Negative); BARBITURATES Negative (Negative); BENZODIAZEPINES Negative (Negative); COCAINE Negative (Negative); METHADONE Negative (Negative); OPIATES Negative (Negative); PCP Negative (Negative)
[2018-07-25 15:39] LABS: BACTERIA-REFLEX 1-9 Few /HPF (None Seen); CASTS None Seen /LPF (None Seen); CRYSTALS None Seen /LPF (None Seen); SQUAMOUS 0-3 Few /LPF (0-3); URINE RBC 0-2 Rare /HPF (0-2); URINE WBC-REFLEX 6-15 Few /HPF (0-5)
[2018-07-25 15:51] LABS: ABSOLUTE NEUTROPHILS 3.8 thou/uL (1.4-8.2); BASOPHILS 0.8 % (0.0-2.0); EOSINOPHILS 2.7 % (0.0-3.0); HEMATOCRIT 38.8 % (37.0-47.0); HEMOGLOBIN 13.2 gm/dL (12.0-15.0); LYMPHOCYTES 21.8 % (24.0-44.0); MCH 32.8 pg (26.0-34.0); MCHC 33.9 g/dL (28.0-37.0); MCV 96.9 fL (80.0-100.0); MONOCYTES 10.1 % (1.0-8.0); PLATELET COUNT 179 thou/uL (150-400); POLYS 64.6 % (36.0-66.0); RBC 4.01 mil/uL (4.20-5.00); RDW 12.3 % (10.5-14.5); WBC 5.8 thou/uL (4.0-11.0)
[2018-07-25 15:58] LABS: ANION GAP 9 mmol/L (7-16); BUN 26 mg/dL (7-18); CALCIUM 9.9 mg/dL (8.5-10.1); CHLORIDE 106 mmol/L (98-107); CO2 28 mmol/L (21-32); CREATININE 1.1 mg/dL (0.6-1.0); GLUCOSE 182 mg/dL (74-106); POTASSIUM 4.1 mmol/L (3.5-5.1); SODIUM 143 mmol/L (136-145)
[2018-07-25 16:07] LABS: TROPONIN-I <0.06 ng/mL (<0.06)
[2018-07-25] MEDS ORDERED: ZYPREXA7.5 MG PO (16:14)
[2018-07-25] MEDS ORDERED: COZAAR 25 MG TA25 M1 PO (16:17)
[2018-07-25 16:43] VITALS: BP 129/64
--- NOTE | 2018-07-25 17:18 | EKG ---
[address] [address] ELECTROCARDIOGRAM REPORT Name: NOLA BURDICK Room #: 170-1 ADM IN M.R.#: [id number] ������������������ Admission: 07/25/18 ������������������ Attend Phys: Kathy Moura MD Discharge: ������������������ Date of : [birth year] Report #: [id number] ����������������������������������������������������������������� [id number] THIS REPORT FOR: //name// [facility] ED Test Date: 2018-07-25 Test Time: 15:49:47 Pat Name: NOLA BURDICK Department: Room: 170 Gender: F Cuff Maker: : [id number] Requested By: Jaime Reed Order Number: [id number] MD: Ivan Rick Measurements Intervals [place] Rate: 90 P: 44 AL: 134 QRS: 19 QRSD: 76 T: 27 QT: 352 QTc: 431 Interpretive Statements Sinus rhythm Abnormal R-wave progression, early transition Compared to ECG 06/25/2018 17:55:53 ST (T wave) deviation no longer present Electronically Signed On 07-25-2018 17:18:20 CDT by Ivan Rick [email or web address] ��������������������������������������������� <ELECTRONICALLY SIGNED> ���������������������������������������� By: Ivan Rick MD ��������������������������������������������� 07/25/18 1718 1549 1549 Ivan Rick MD /[facility]
[2018-07-25 17:46] VITALS: BP 141/64
--- NOTE | 2018-07-25 19:43 | NUR ---
ASSUMED CARE AT 1800, ADMIT FROM ER. ADMISSION HISTORY AND EDUCATION DONE. ORDER RECEIVED FROM DR ROMERO. ON REGULAR DIET. IV FLUIDS STARTED. REPORT GIVEN TO NIGHT NURSE.
[2018-07-25 20:00] VITALS: BP 134/52
[2018-07-26 04:30] VITALS: BP 147/60
[2018-07-26 05:11] LABS: HEMOGLOBIN 13.6 gm/dL (12.0-15.0); MCH 32.2 pg (26.0-34.0); MCV 97.6 fL (80.0-100.0); RBC 4.2 mil/uL (4.20-5.00); RDW 12.5 % (10.5-14.5); WBC 5.4 thou/uL (4.0-11.0)
[2018-07-26 05:21] LABS: CALCIUM 9.6 mg/dL (8.5-10.1); POTASSIUM 4.1 mmol/L (3.5-5.1)
--- NOTE | 2018-07-26 05:37 | NUR ---
PT VERY CONFUSED AND STARTED TO GET AGITATED AND VERY ARGUMENTATIVE WITH STAFF THAT REDIRECTION WAS NOT WORKING, CALLED TO DR ROMERO, SEROQUEL ORDERED, ALSO THE ROCEPHIN ORDERED WAS NOT RELEASED BY PHARMACY DUE TO PCN ALLERGY AND UNABLE TO OBTAIN INFO FROM PATIENT WHAT HAPPENS WHEN SHE TOOK THE PCN, HAD SINGH D/CD, STARTED HER ON CIPRO IV FOR HER UTI, PT HAD FREQUENCY OF URINATION, HAD BEEN AMBULATING TO THE BATHROOM WITH X1, GAIT BELT AND WALKER, HAD BM LAST NOC, SCDS ON, ON ROOM AIR, NO PAIN NOTED, TOOK MEDS WITH NO DIFFICULTY, REDNESS TO COCCYX NOTED BUT UNABLE TO ASSESS FURTHER DUE TO PT WAS REFUSING, BED ALARM ON, ORAL HYDRATION OFFERED, TOLERATING LIQUIDS, MONITORED.
[2018-07-26 08:50] VITALS: BP 147/71
--- NOTE | 2018-07-26 09:08 | NUR ---
WOUND CONSULT: PT. WAS SEEN TODAY FOR A SKIN EVUALTION. PT. HAS A STAGE 1 PRESSURE ULCER TO HER SACRUM. PT. IS IN GOOD SPIRITS TODAY BUT, CONFUSED. RECOMMENDATIONS: WOUND CARE TO SACRUM: GENTLY CLEANSE AREA WITH WOUND CLEANSER OR NORMAL SALINE, APPLY MOISTURE BARRIER CREAM, LEAVE OPEN TO AIR, COMPLETE CARES DAILY AND PRN. TURN Q2 HOURS KEEP PT. OFF WOUNDS MUCH POSSIBLE PT. AND STAFF NURSE WERE INSTRUCTED ON PLAN OF CARE.
--- NOTE | 2018-07-26 10:15 | NUR ---
Notification of pressure ulcer-wound care has assessed as stage I to sacrum. From manager terminal care, recently on senior behavioral health unit at [facility]. Required dysphagia diet at that time however nursing reports did very well with regular diet this am eating 100% and taking pills with liquids. Wt down ~5 lb from past trends. Appears low nutrition risk at this time.
--- NOTE | 2018-07-26 15:59 | NUR ---
INITIAL ASSESSMENT: Pt evaluated for d/c planning needs. Reviewed chart. Pt is confused. Pt lives in assisted living memory care unit at [facility]. Spoke with staff development coordinator at facility to confirm. Pt uses walker for ambulation. Plan is for pt to return to [facility] on d/c from hospital. Will remain available to assist as needed.
--- NOTE | 2018-07-26 19:27 | NUR ---
Assumed pt care at 7am.Pt in and out of bed with assist.Assessment completed. Assisted pt with tray setup. Fair appetite noted.Dr Moura hereearly this shift and order noted.Later this evening,before dinner,pt was agitated and constantly getting out of chair.Seroquel given but bearly have positive effect on pt.Report off to Sandra delacruz.Both chair and bed alarm in use for pt safety. Will continue to monitor.
--- NOTE | 2018-07-27 02:20 | NUR ---
PT HAS BEEN CONFUSED SINCE THE SHIFT STARTED. SITTNG IN CHAIR AND EACH TIME SHE IS TRYING TO STAND. ORDERS RECD FROM DR ROMERO TO INCREASE DOSE OF SEROQUEL.NO MUCH CHANGE. PT REQUIRES A SITTER. IVF STILL INFUSING VIA RFA.
[2018-07-27 04:00] VITALS: BP 168/63
--- NOTE | 2018-07-27 07:56 | NUR ---
ASSUMED CARE OF PATIENT ALERT XS 4 PT GIVEN PAIN MED AND N&V MED ORDERED. PT RESTING COMFORTABLE AT THIS TIME.
--- NOTE | 2018-07-27 08:04 | H ---
[facility] [place] [address] HISTORY AND PHYSICAL Name: GENNARONOLA DAVE Room #: 419-P ADM IN M.R.#: [id number] Admission: 07/25/18 ������������������ Attend Phys: Kathy Moura MD Discharge: ������������������ Date of : [birth year] Report #: [id number] THIS REPORT FOR: //name// CC: Kathy Moura DATE OF SERVICE: 07/25/2018 HISTORY OF PRESENT ILLNESS: The patient is an 87-year-old female who was transferred to [facility] for increasing lethargy, weakness. The patient was diagnosed to have urinary tract infection. 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 The patient has the diagnosis of obsessive compulsive disorder. ALLERGIES: PENICILLIN. MEDICATIONS: Reviewed and reconciled. SOCIAL HISTORY, FAMILY HISTORY AND REVIEW OF SYSTEMS: Unobtainable. PHYSICAL EXAMINATION: VITAL SIGNS: On arrival to the hospital, the patient's temperature was 36.8, pulse 103, respiration 20, blood pressure 166/108 that dropped to 147/60. GENERAL: The patient is awake and alert, but unfortunately she is not able to answer simple questions. HEAD AND NECK: Unremarkable. LUNGS: Clear to auscultation. CARDIAC: S1, S2. ABDOMEN: Benign. Bowel sounds were positive. EXTREMITIES: Without any edema. LABORATORY DATA: On arrival to the hospital, chest x-ray showed no acute cardiopulmonary process detected, mild bibasilar scarring with low lung volumes and unchanged from prior study. Drug screen was negative. Urinalysis showed leukocytes +1, white blood cells 6-15, red blood cells 0-2, bacteria 1-9. CBC showed a white count of 5.8, hemoglobin 13.2, hematocrit 38.8, platelet count 179, neutrophils are 64%. The patient's sodium is 143, potassium 4.1, chloride 106, bicarbonate 28, BUN 26, creatinine 1.1, glucose 182. Troponin less than 0.06. CT of the head showed prominence of the ventricles and sulci, compatible with atrophy. There is decreased attenuation in the periventricular white matter, this is nonspecific, but most commonly associated with chronic microvascular ischemia. The left sphenoid sinus appears completely opacified [facility] [address] [place] [address] HISTORY AND PHYSICAL Name: NOLA BURDICK Room #: 419-P ADM IN M.R.#: [id number] Admission: 07/25/18 ������������������ Attend Phys: Kathy Moura MD Discharge: ������������������ Date of : [birth year] Report #: [id number] with somewhat extensive process, which could be related to chronic sinusitis or a mucocele. A 12-lead EKG showed sinus rhythm with abnormal R-wave progression. Repeated CBC showed sodium of 139, potassium 4.1, chloride 104, bicarbonate 27, BUN 20, creatinine 1, glucose 166. Repeated CBC showed a white count of 5.4, hemoglobin 13.6, hematocrit 41, platelet count 180. ASSESSMENT AND PLAN: Altered mental status that could be related to: 1. Medications. 2. Possibility of urinary tract infection. The patient was admitted to the hospital with the above-mentioned diagnoses. I will go ahead and resume the patient's blood pressure medications. The patient was started on Cipro in the Emergency Room and will continue with that for now. We are waiting for the culture results. I went ahead and resumed the patient's Seroquel. I will have physical therapy and occupational therapy to work with the patient. We will continue to monitor the patient. ��������������������������������������������� <ELECTRONICALLY SIGNED> ���������������������������������������� By: Kathy Moura MD ��������������������������������������������� 07/27/18 0804 0749 0905 Kathy Moura MD /nt
[2018-07-27 09:00] VITALS: BP 144/66
--- NOTE | 2018-07-27 14:54 | NUR ---
FAXED CLINICAL UPDATE TO [facility]. UPDATE RECEIVED. DCP TO FOLLOW.
[2018-07-27 15:21] VITALS: BP 123/53
[2018-07-27 17:10] VITALS: BP 177/74
[2018-07-27 19:33] VITALS: BP 158/75
--- NOTE | 2018-07-28 04:05 | NUR ---
PT SLEPT BETTER TONIGHT. WITH INSTANCES OF TRYING TO GET UP. SITTER IN ROOM FOR PATIENT SAFETY.
[2018-07-28 05:00] VITALS: BP 139/63
[2018-07-28] MEDS ORDERED: TRAZODONE HCL50 MG PO ×2 (09:15→13:31)
[2018-07-28] MEDS ORDERED: SEROQUEL 50 MG50 MG PO (09:15)
[2018-07-28 10:13] VITALS: BP 139/63
--- NOTE | 2018-07-28 10:37 | NUR ---
Pt in and out of bed with assist and gait belt.Assessment completed.vss.Pt still confused and disoriented.Dr Moura's fnp here,dc order noted.senior restaurant manager to arranged for pt dc to [facility] today.Pt in bed resting with sitter at bs at all times.No verbal c/o.Will continue to monitor.
--- NOTE | 2018-07-28 13:29 | NUR ---
PT DISCHARGING TODAY BACK TO [facility] FAXED DC ORDERS/SUMMARY TO [facility]ILITY[facility] AND SPOKE WITH ASHU IN ADM SHE RECEIVED DC ORDERS. THEY DO NOT HAVE A DINING SERVICE INSPECTOR AT THE FACILITY TODAY SO DCP ARRANGED WC VAN THROUGH [employer] FOR [phone]. LEFT MSMychal WITH HER AUTH. CONTACT (ANTOINE) OF DISCHARGE AND TIME OF TRANSPORT. UNIT NOTIFIED AND CHART COPY PER US. RN TO CALL REPORT TO [phone].
[2018-07-28] MEDS ORDERED: SEROQUEL 25 MG25 M1 PO (13:31)
[2018-07-28] MEDS ORDERED: LORAZEPAM 0.50.5 M1 PO (13:32)
[2018-07-28 13:38] VITALS: BP 139/63
== END 2018-07-28 15:21 | disposition home or self-care (01) | DRG 689 ==
LOC: ER 15:09 → EROBS 16:27 → 4E 16:27 → ENTRNSPT 07-26 18:32 → 4E 07-28 15:21
PROVIDERS: Emergency Medicine; ADMIT Internal Medicine
DX: N39.0 Urinary tract infection, site not specified (principal); G92 Toxic encephalopathy; K21.9 Gastro-esophageal reflux disease without esophagitis; R41.0 Disorientation, unspecified; F41.9 Anxiety disorder, unspecified; E78.00 Pure hypercholesterolemia, unspecified; Z88.0 Allergy status to penicillin; Z87.891 Personal history of nicotine dependence; Z79.899 Other long term (current) drug therapy
CPT/HCPCS: 10084; 10183

== ENCOUNTER 2018-07-29 12:45 | Emergency (ER) | payer OTHER, BC ==
[~2018-07-29] VITALS: Ht 160 cm; Wt 54.4 kg
[~2018-07-29 12:45] MED LIST changes: +COZAAR 25 MG TA25 M1 PO; +LORAZEPAM 0.50.5 M1 PO; +SEROQUEL 50 MG50 MG PO; +TRAZODONE HCL50 MG PO; +ZYPREXA7.5 MG PO
[2018-07-29 16:15] VITALS: BP 139/63
== END 2018-07-29 16:20 | disposition home or self-care (01) ==
LOC: ER 12:45
DX: M25.552 Pain in left hip (principal); M48.00 Spinal stenosis, site unspecified; K21.9 Gastro-esophageal reflux disease without esophagitis; F41.9 Anxiety disorder, unspecified; G30.9 Alzheimer's disease, unspecified; F02.80 Dementia in other diseases classified elsewhere, unspecified severity, without behavioral disturbance, psychotic disturbance, mood disturbance, and anxiety; Z87.891 Personal history of nicotine dependence; Z88.0 Allergy status to penicillin

== ENCOUNTER 2018-09-27 02:51 | Emergency (ER) | payer OTHER, BC ==
[~2018-09-27] VITALS: Ht 167.6 cm; Wt 65.8 kg
[2018-09-27] MEDS ORDERED: TRAMADOL 50 MG50 MG PO (04:34)
[2018-09-27 05:30] VITALS: BP 168/90
== END 2018-09-27 07:39 | disposition home or self-care (01) ==
LOC: ER 02:51
DX: S13.4XXA Sprain of ligaments of cervical spine, initial encounter (principal); J34.89 Other specified disorders of nose and nasal sinuses; S70.02XA Contusion of left hip, initial encounter; S70.01XA Contusion of right hip, initial encounter; F31.9 Bipolar disorder, unspecified; G30.9 Alzheimer's disease, unspecified; F02.80 Dementia in other diseases classified elsewhere, unspecified severity, without behavioral disturbance, psychotic disturbance, mood disturbance, and anxiety; F41.9 Anxiety disorder, unspecified; E78.5 Hyperlipidemia, unspecified; Z87.891 Personal history of nicotine dependence; Z88.0 Allergy status to penicillin; W18.2XXA Fall in (into) shower or empty bathtub, initial encounter; Y93.89 Activity, other specified; Y92.89 Other specified places as the place of occurrence of the external cause; Y99.8 Other external cause status

== ENCOUNTER → 2018-10-10 | Outpatient (CLI) | payer BC, OTHER | LOC: CAT 08:21 | DX: J34.89 Other specified disorders of nose and nasal sinuses (principal); J32.9 Chronic sinusitis, unspecified; R41.82 Altered mental status, unspecified; K21.9 Gastro-esophageal reflux disease without esophagitis; I10 Essential (primary) hypertension; E78.5 Hyperlipidemia, unspecified; E55.9 Vitamin D deficiency, unspecified; E53.9 Vitamin B deficiency, unspecified; K59.04 Chronic idiopathic constipation; E63.9 Nutritional deficiency, unspecified; G30.0 Alzheimer's disease with early onset; F41.9 Anxiety disorder, unspecified ==

== ENCOUNTER → 2018-10-18 | Outpatient (CLI) | payer BC, OTHER | LOC: MRI 09:52 | PROVIDERS: Otolaryngology | DX: R22.0 Localized swelling, mass and lump, head (principal) ==